=== PATIENT | female | born 1995 | race Caucasian/White ===

== ENCOUNTER 2017-02-24 20:50 | Emergency (ER) | payer BC ==
[2017-02-24 20:57] VITALS: BP 108/64; PULSE 103; TEMP 99.2; BMI 31.6
--- NOTE | 2017-02-24 21:15 | PDOC ---
History of Present Illness - General History Source: Patient, Family (Mother) Exam Limitations: No Limitations - History of Present Illness Initial Comments: 02/24/17 21:45 The patient is a 21 year old female with no significant past medical history, who presents to the ER with throat and abdominal pain for five days. Patient states she has a sore throat and accompanied decreased PO intake. She states she also has had abdominal pain. On interview, patient denies abdominal pain. Patient says she had several episodes of nausea and vomiting, and one episode of diarrhea. As per mother, patient has had fluctuating fever, last measured was a fever at 105.3. Patient denies sick contacts. She says she went to Dr. Orellana yesterday for similar symptoms and was given amoxicillin to take at home. Patients throat culture has not come back yet. Patient states she had an ultrasound done yesterday to rule out appendicitis. Results of the ultrasound have not come back yet. Denies cough, shortness of breath, chest pain Denies sick contacts PCP: Dr. Orellana <Iveth Smith - Last Filed: 02/24/17 21:54> - General History Source: Patient <BorisHoang - Last Filed: 02/25/17 03:10> - General Chief Complaint: SIRS, Suspected/Possible Stated Complaint: FEVER, ABD PAIN, NAUSEA Time Seen by Provider: 02/24/17 21:06 Past History <Iveth Smith - Last Filed: 02/24/17 21:54> - Psycho/Social/Smoking Cessation Hx Suicidal Ideation: No Smoking History: Never smoked <Hoang Escalante - Last Filed: 02/25/17 03:10> - Past Medical History Allergies/Adverse Reactions: Allergies Allergy/AdvReac Type Severity Reaction Status Date / Time No Known Allergies Allergy Verified 02/24/17 20:54 Home Medications: Ambulatory Orders Acetaminophen [Tylenol] 650 mg PO QID PRN 02/24/17 Amoxicillin - [Amoxicillin 500mg Capsule -] 500 mg PO BID 02/24/17 Ondansetron [Zofran *Odt*] 4 mg SL TID #30 od.tablet 02/25/17 Review of Systems - Review of Systems Able to Perform ROS?: Yes Comments:: 02/24/17 21:51 CONSTITUTIONAL: Present: (+) fever, (+) chills Absent: no fatigue EYES: Absent: visual changes ENT: Present: (+) sore throat Absent: ear pain CARDIOVASCULAR: Absent: chest pain, no palpitations RESPIRATORY: Absent: cough, no SOB GI: Present: (+) nausea, (+) vomiting, (+) diarrhea, (+) abdominal pain Absent: no constipation GENITOURINARY: Absent: dysuria, no frequency, no hematuria MUSCULOSKELETAL: Absent: back pain, no arthralgia, no myalgia SKIN: Absent: rash NEURO: Absent: headache <VtTae marcanoa - Last Filed: 02/24/17 21:54> *Physical Exam - Vital Signs Last Vital Signs Temp Pulse Resp BP Pulse Ox 99.2 F 103 H 20 108/64 99 02/24/17 20:55 02/24/17 20:55 02/24/17 20:55 02/24/17 20:55 02/24/17 20:55 - Physical Exam Comments: 02/24/17 21:52 GENERAL: Well-appearing, well-nourished. No apparent distress. HEENT: Throat erythematous , no exudates. Normocephalic, atraumatic. PERRL, EOM intact. CARDIOVASCULAR: Tachycardic. Normal S1, S2. Regular rhythm. PULMONARY: Clear to auscultation bilaterally. ABDOMEN: Soft, non-distended, non-tender. EXTREMITIES: Normal ROM in all four extremities. No gross deformities. SKIN: Warm, dry. No rash NEUROLOGICAL: No focal neurological deficits. <VtTae marcanoa - Last Filed: 02/24/17 21:54> - Vital Signs Last Vital Signs Temp Pulse Resp BP Pulse Ox 99.2 F 103 H 20 108/64 99 02/24/17 20:55 02/24/17 20:55 02/24/17 20:55 02/24/17 20:55 02/24/17 20:55 <Hoang Escalante - Last Filed: 02/25/17 03:10> ED Treatment Course - LABORATORY CBC & Chemistry Diagram: 02/24/17 22:15 02/24/17 22:15 <Hoang Escalante - Last Filed: 02/25/17 03:10> Medical Decision Making - Medical Decision Making 02/25/17 03:10 Dr. Sinisterra: The scribe's documentation has been prepared under my direction and personally reviewed by me in its entirery. I confirm that the note above accurately reflects all work, treatment, procedures, and medical decision making performed by me. <Hoang Escalante - Last Filed: 02/25/17 03:10> *DC/Admit/Observation/Transfer - Attestations Scribe Attestion: 02/24/17 21:52 Documentation prepared by Iveth Smith, acting as coroner/medical examiner for Hoang Escalante DO. <Iveth Smith - Last Filed: 02/24/17 21:54> - Discharge Dispostion Admit: No <Hoang Escalante - Last Filed: 02/25/17 03:10> Diagnosis at time of Disposition: Abdominal pain, Fever - Prescriptions Prescriptions: Ondansetron [Zofran *Odt*] 4 mg SL TID #30 od.tablet - Referrals Referrals: Monroe Orellana MD [Primary Care Provider] - - Patient Instructions Printed Discharge Instructions: DI for Fever (Symptom) -- Adult, DI for Abdominal Pain-Adult - Post Discharge Activity Work/School Note: Back to Work
[2017-02-24] MEDS ORDERED: ONDANSETRON 4 MG/2 ML VIAL IVPUSH STA (21:17)
[2017-02-24] MEDS ORDERED: SODIUM CHLORIDE 1,000 ML IV STA (21:17)
[2017-02-24 22:26] LABS: BASOPHIL 0.3 % (0-2.0); MCH 26.1 pg (25.7-33.7); MCHC 31.8 g/dl (32.0-36.0); MEAN CELL VOLUME 82.1 fl (80-96); MEAN PLT VOLUME 7.2 fl (7.5-11.1); NEUTROPHILS 62.1 % (42.8-82.8); PLATELET COUNT 331 K/MM3 (134-434); RDW 15.9 % (11.6-15.6); WHITE BLOOD COUNT 8.1 K/mm3 (4.0-10.0)
[2017-02-24] MEDS ORDERED: ONDANSETRON 4 MG/2 ML VIAL ONE (22:29)
[2017-02-24 22:30] LABS: URINE APPEARANCE CLEAR; URINE BILIRUBIN NEGATIVE (NEGATIVE); URINE BLOOD NEGATIVE (NEGATIVE); URINE COLOR STRAW; URINE GLUCOSE (UA) NEGATIVE (NEGATIVE); URINE KETONE NEGATIVE (NEGATIVE); URINE NITRITE NEGATIVE (NEGATIVE); URINE PROTEIN NEGATIVE (NEGATIVE); URINE UROBILINOGEN NEGATIVE E.U./dl (0.2-1.0)
[2017-02-24 22:35] LABS: URINE LEUK ESTERASE TRACE (NEGATIVE)
[2017-02-24 22:47] LABS: URINE BACTERIA RARE /hpf (NONE SEEN); URINE MUCUS RARE; URINE RBC 1 /hpf (0-3); URINE WBC 2 /hpf (3-5)
[2017-02-24 23:00] LABS: ALBUMIN 3.9 g/dl (3.4-5.0); ALK PHOS 73 U/L (45-117); AMYLASE 24 U/L (25-115); ANION GAP 10 (8-16); BILIRUBIN,TOTAL 0.4 mg/dL (0.2-1.0); CALCIUM 9.1 mg/dL (8.5-10.1); CO2 28 mmol/L (21-32); CREATININE 0.8 mg/dL (0.55-1.02); GLUCOSE,RANDOM 81 mg/dL (74-106); SGOT/AST 14 U/L (15-37); SGPT/ALT 18 U/L (12-78); TOT PROT 8.1 g/dl (6.4-8.2)
[2017-02-25] MEDS ORDERED: ONDANSETRON *ODT* 4 MG TABLET SL ONE (00:12)
[2017-02-25] MEDS ORDERED: ONDANSETRON *ODT* 4 MG TABLET ONE (00:22)
== END 2017-02-25 00:29 | disposition home or self-care (01) ==
LOC: JER 20:50
PROC: 3E033GC Introduction of Other Therapeutic Substance into Peripheral Vein, Percutaneous Approach (ICD-10-PCS; principal; 2017-02-24)
DX: R10.84 Generalized abdominal pain (principal); R50.9 Fever, unspecified
CPT/HCPCS: 36415; 74177-TC; 80053; 81003; 81015; 82150; 83690; 84703; 85025; 99283-25; Q9967